=== PATIENT | female | born 1995 | race Caucasian/White ===

== ENCOUNTER 2019-05-20 07:51 | Emergency (ER) | payer SELFPAY ==
[2019-05-20] MEDS ORDERED: NORMAL SALINE 1000 ML 1,000 ML IV ONE (08:51)
--- NOTE | 2019-05-20 09:18 | ER Document Report ---
ED General - General Chief Complaint: Syncope Stated Complaint: POSSIBLE SYNCOPE Time Seen by Provider: 05/20/19 08:50 Primary Care Provider: [facility],EMPLOYEE [Primary Care Provider] - Follow up as needed TRAVEL OUTSIDE OF THE [place] IN LAST 30 DAYS: No - HPI Notes: Patient is a 23-year-old female who presents emerge department for evaluation. She complains of lower abdominal pain, that she describes as a cramping type pain. She also has some pain in her right inferior chest. She describes it as sharp, sometimes worsens with cough and deep breath. She has had some chills, but no fevers. No nausea or vomiting. She has had some vaginal discharge. She states she is a history of gonorrhea and states that this feels similar. She had diarrhea a few days ago, but has had normal bowel movement since then. She is currently sexually active, not in a monogamous relationship. - Related Data Allergies/Adverse Reactions: No Known Allergies Allergy (Unverified 05/20/19 07:52) Past Medical History - General Information source: Patient - Social History Smoking Status: Current Every Day Smoker Frequency of alcohol use: None Drug Abuse: Marijuana Family History: DM Patient has suicidal ideation: No Patient has homicidal ideation: No Renal/ Medical History: Denies: Hx Peritoneal Dialysis Review of Systems - Review of Systems Constitutional: See HPI EENT: No symptoms reported Cardiovascular: See HPI Respiratory: No symptoms reported Gastrointestinal: See HPI Genitourinary: No symptoms reported Female Genitourinary: See HPI Musculoskeletal: No symptoms reported Skin: No symptoms reported Neurological/Psychological: No symptoms reported Physical Exam - Vital signs Vitals: Temp Pulse Resp BP Pulse Ox 98.2 F 78 20 108/68 98 05/20/19 07:58 05/20/19 07:58 05/20/19 07:58 05/20/19 07:58 05/20/19 07:58 - Notes Notes: Vital signs reviewed, please refer to chart. Head is normocephalic, atraumatic. Pupils equal round, reactive to light. Neck is supple without meningismus. Heart is regular rate and rhythm. Lungs are clear to auscultation bilaterally. Semination of the chest wall reveals no obvious abnormality. She has equal chest wall excursion. No tenderness over the right inferior ribs. Abdomen is soft, minimal pelvic tenderness to palpation., normoactive bowel sounds throughout. Extremities without cyanosis, clubbing. Posterior calves are nontender. Peripheral pulses are equal. Skin is warm and dry. Patient is awake, alert, neurological exam is nonfocal. Course - Vital Signs Vital signs: Temp Pulse Resp BP Pulse Ox 98.2 F 78 20 108/68 98 05/20/19 07:58 05/20/19 07:58 05/20/19 07:58 05/20/19 07:58 05/20/19 07:58 Discharge - Discharge Referrals: HEALTH,EMPLOYEE [Primary Care Provider] - Follow up as needed
--- NOTE | 2019-05-20 09:21 | ER Document Report ---
ED General - General Chief Complaint: Syncope Stated Complaint: POSSIBLE SYNCOPE Time Seen by Provider: 05/20/19 08:50 Primary Care Provider: HEALTH,EMPLOYEE [ACTIVE STAFF] - Follow up as needed TRAVEL OUTSIDE OF THE [place] IN LAST 30 DAYS: No - HPI Notes: Patient is a 23-year-old female who presents to the emergency department for evaluation of a near syncopal event. She is a [employer], was on the floor upstairs. She is checking vital signs. She states she started to feel dizzy and lightheaded. She stated her hearing started to go out, the room started to go dark. She nearly passed out. She did not have a fall on syncopal episode. She states she had breakfast this morning. She stays well-hydrated. Her appetite is actually been increased as of late. She denies any pain. No medication changes as of late. - Related Data Allergies/Adverse Reactions: No Known Allergies Allergy (Unverified 05/20/19 07:52) Home Medications: Oral contraceptives Past Medical History - General Information source: Patient - Social History Smoking Status: Never Smoker Frequency of alcohol use: None Drug Abuse: None Family History: Reviewed & Not Pertinent Patient has suicidal ideation: No Patient has homicidal ideation: No Renal/ Medical History: Denies: Hx Peritoneal Dialysis Review of Systems - Review of Systems Constitutional: See HPI EENT: No symptoms reported Cardiovascular: See HPI Respiratory: No symptoms reported Gastrointestinal: No symptoms reported Genitourinary: No symptoms reported Female Genitourinary: No symptoms reported Musculoskeletal: No symptoms reported Skin: No symptoms reported Neurological/Psychological: No symptoms reported Physical Exam - Vital signs Vitals: Temp Pulse Resp BP Pulse Ox 98.2 F 78 20 108/68 98 05/20/19 07:58 05/20/19 07:58 05/20/19 07:58 05/20/19 07:58 05/20/19 07:58 - Notes Notes: Vital signs reviewed, please refer to chart. Head is normocephalic, atraumatic. Pupils equal round, reactive to light. Neck is supple without meningismus. Heart is regular rate and rhythm. Lungs are clear to auscultation bilaterally. Abdomen is soft, nontender, normoactive bowel sounds throughout. Extremities without cyanosis, clubbing. Posterior calves are nontender. Peripheral pulses are equal. Skin is warm and dry. Patient is awake, alert, oriented x3. Cranial nerves II - XII are grossly intact without focal neurological deficits. Strength is plus 5 out of 5 bilateral upper and lower extremities. Sensation is intact. Reflexes symmetrical. Intact [id number], rapid alternating movements, [id number]. Course - Re-evaluation Re-evalutation: 05/20/19 11:35 Patient presents emergency department for evaluation of a near syncopal episode. She has no risk factors for cardiac syncope, no EKG abnormalities. Her neurological exam was normal. Unfortunately her orthostatic vital signs were done after IV fluids, so they are not of significant use at this point. I cannot find any clear etiology for her syncope, I suspect it to be likely vasovagal. Patient is vitally stable. She has no chest pain or difficulty breathing. She no longer feels dizzy. She is to follow-up with primary care this week, return to the ED with worsening or new concerning symptoms of any sort. - Vital Signs Vital signs: Temp Pulse Resp BP Pulse Ox 98.2 F 82 20 112/58 L 98 05/20/19 07:58 05/20/19 09:59 05/20/19 07:58 05/20/19 09:59 05/20/19 07:58 - Laboratory Result Diagrams: 05/20/19 09:05 05/20/19 10:10 Laboratory results interpreted by me: 05/20/19 05/20/19 09:05 10:10 MCV 101 H MCH 34.0 H BUN 33 H Alkaline Phosphatase 26 L Total Protein 6.2 L - EKG Interpretation by Me Additional EKG results interpreted by me: 05/20/19 11:36 Sinus mechanism with a rate of 80 bpm. Normal axis and intervals, no acute ST changes concerning for ischemia or infarction. Discharge - Discharge Clinical Impression: Syncope, near Condition: Stable Disposition: HOME, SELF-CARE Instructions: Near Syncopal Episode ([facility]) Additional Instructions: No clear cause was found for your new syncopal episode today. Rest, stay well- hydrated. Follow-up with your primary care provider this week. Return to the emergency department with worsening or new concerning symptoms of any sort. Referrals: HEALTH,EMPLOYEE [ACTIVE STAFF] - Follow up as needed
[2019-05-20 09:28] LABS: ABSOLUTE BASOPHILS # (AUTO) 0.1 10^3/uL (0.0-0.2); ABSOLUTE EOSINOPHILS # (AUTO) 0.2 10^3/uL (0.0-0.6); ABSOLUTE LYMPHOCYTES (AUTO) 1.3 10^3/uL (0.5-4.7); ABSOLUTE MONOCYTES (AUTO) 0.6 10^3/uL (0.1-1.4); ABSOLUTE NEUT (AUTO) 5.2 10^3/uL (1.7-8.2); BASOPHILS % (AUTO) 0.9 % (0-2); EOSINOPHILS % (AUTO) 2.8 % (0-6); HEMATOCRIT 37.9 % (36.0-47.0); HEMOGLOBIN 12.7 g/dL (12.0-15.5); LYMPHOCYTES % (AUTO) 17.5 % (13-45); MEAN CORPUSCULAR HGB CONC 33.6 g/dL (32.0-36.0); MEAN CORPUSCULAR VOLUME 101 fl (80-97); PLATELET COUNT 272 10^3/uL (150-450); RED BLOOD COUNT 3.75 10^6/uL (3.72-5.28); SEGMENTED NEUTROPHILS % (AUTO) 70.8 % (42-78); TOTAL CELLS COUNTED % (AUTO) 100 %; WHITE BLOOD COUNT 7.4 10^3/uL (4.0-10.5)
[2019-05-20 10:41] LABS: ALBUMIN 3.7 g/dL (3.5-5.0); ALKALINE PHOSPHATASE 26 U/L (38-126); ANION GAP 6 (5-19); ASPARTATE AMINO TRANSFERASE 31 U/L (14-36); BILIRUBIN,DIRECT 0.1 mg/dL (0.0-0.4); BILIRUBIN,TOTAL 0.4 mg/dL (0.2-1.3); BLOOD UREA NITROGEN 33 mg/dL (7-20); CALCIUM 8.9 mg/dL (8.4-10.2); CARBON DIOXIDE 28 mmol/L (22-30); CHLORIDE 106 mmol/L (98-107); GLUCOSE 75 mg/dL (75-110); POTASSIUM 4.5 mmol/L (3.6-5.0); TOTAL PROTEIN 6.2 g/dL (6.3-8.2)
[2019-05-20 11:17] LABS: APPEARANCE,URINE SLIGHTLY-CLOUDY; BILIRUBIN,URINE NEGATIVE (NEGATIVE); CALCIUM OXALATE CRYSTALS,URINE MANY /HPF; COLOR,URINE YELLOW; GLUCOSE, URINE NEGATIVE (NEGATIVE); KETONES,URINE NEGATIVE (NEGATIVE); LEUKOCYTE ESTERASE,URINE NEGATIVE (NEGATIVE); NITRITE,URINE NEGATIVE (NEGATIVE); PROTEIN,URINE NEGATIVE (NEGATIVE); URINE SPECIFIC GRAVITY 1.026; UROBILINOGEN,URINE NEGATIVE mg/dL (<2.0)
[2019-05-20 12:04] VITALS: BP 112/51
--- NOTE | 2019-05-20 12:16 | EKG REPORT ---
SEVERITY:- NORMAL ECG - SINUS RHYTHM : Confirmed by: Jeremiah Dewitt MD 20-May-2019 12:16:15
== END 2019-05-20 12:04 | disposition home or self-care (01) ==
LOC: ER 07:51
DX: R55 Syncope and collapse (principal); R42 Dizziness and giddiness
CPT/HCPCS: 93005; 36415; 84703; 85025; 80053; 81001; 93010; J7030; 96360; 99284